=== PATIENT | female | born 1965 | race American Indian/Alaskan Native ===

== ENCOUNTER 2018-05-01 17:20 | Emergency (ER) | payer SELFPAY ==
--- NOTE | 2018-05-01 21:25 | XRay Report ---
FINAL REPORT PROCEDURE: XR FEMUR 2+V LT TECHNIQUE: LEFT femur radiographs, AP and lateral views. HISTORY: fall COMPARISON: No prior studies are available for comparison. FINDINGS: Fracture (s) and/or Dislocation(s): None . Joint space(s): Normal . Soft tissues: Normal . Bone mineralization: Normal . Foreign bodies: None . IMPRESSION: Normal Examination
--- NOTE | 2018-05-01 21:26 | XRay Report ---
FINAL REPORT PROCEDURE: XR PELVIS 1-2V TECHNIQUE: Pelvis radiograph, AP view. CPT 74895 HISTORY: RT HIP PAIN S/P FALL COMPARISON: No prior studies are available for comparison. FINDINGS: Fracture(s): None . Alignment: There appears to be mild degree subluxation of the pubic symphysis. Joint spaces: Normal . Soft tissues: Normal . Foreign bodies: None . Bone mineralization: Normal . IMPRESSION: Possible mild degree subluxation of pubic symphysis
[2018-05-01] MEDS ORDERED: PERCOCET 5/325 PO ONE (21:57)
--- NOTE | 2018-05-01 22:02 | Emergency Department Report ---
ED Fall HPI - General Chief Complaint: Extremity Injury, Lower Stated Complaint: LEFT HIP PAIN Time Seen by Provider: 05/01/18 21:48 Source: patient Mode of arrival: Wheelchair - History of Present Illness Initial Comments: 52-year-old -[place] female with no past medical history comes in reporting that she slipped in water at [facility] and landed on her left side. Patient complains of left hip pain right shoulder pain back of the head pain. Patient reports that she cannot walk secondary to excruciating pain. She reports her pain is a 10 out of 10 that is constant. She reports that is hard to get comfortable sitting in the seat. Complaint: fall -: This evening Fall From: standing When Fall Occurred: 1 hour [employer] Fall Witnessed: yes, by family Place Fall Occurred: other Loss of Consciousness: none Prolonged Down Time?: no ([facility]) Symptoms Prior to Fall: none Location: head, pelvis, other (right shoulder) Location - Extremities: Left: Ankle, Right: Shoulder Severity: severe Severity scale (0 -10): 10 Quality: tingling Context: tripped/slipped Associated Symptoms: denies - Related Data Previous Rx's Medication Instructions Recorded Last Taken Type Ibuprofen [Motrin 600 MG tab] 600 mg PO Q8H PRN #30 tablet 05/02/18 Unknown Rx Allergies Allergy/AdvReac Type Severity Reaction Status Date / Time No Known Allergies Allergy Verified 05/01/18 17:29 ED Review of Systems ROS: Stated complaint: LEFT HIP PAIN Other details as noted in HPI Comment: All other systems reviewed and negative Musculoskeletal: arthralgia (pelvic pain, left hip, right shoulder and left ankle) Neurological: headache ED Past Medical Hx - Past Medical History Previous Medical History?: No - Surgical History Past Surgical History?: No - Social History Smoking Status: Never Smoker Substance Use Type: None - Medications Home Medications: Home Medications Medication Instructions Recorded Confirmed Last Taken Type Ibuprofen [Motrin 600 MG tab] 600 mg PO Q8H PRN #30 tablet 05/02/18 Unknown Rx ED Physical Exam - General Limitations: No Limitations General appearance: alert, in no apparent distress - Head Head exam: Present: atraumatic, normocephalic - Eye Eye exam: Present: PERRL, EOMI - ENT ENT exam: Present: mucous membranes moist - Neck Neck exam: Present: normal inspection, full ROM. Absent: tenderness - Respiratory Respiratory exam: Present: normal lung sounds bilaterally. Absent: respiratory distress - Cardiovascular Cardiovascular Exam: Present: regular rate, normal rhythm. Absent: systolic murmur, diastolic murmur, rubs, gallop - GI/Abdominal GI/Abdominal exam: Present: soft, normal bowel sounds - Expanded Lower Extremity Exam Left Hip exam: Present: tenderness (trochanter bursa area). Absent: swelling, abrasion, deformity, dislocation, erythema, shortening Knee exam: Present: normal inspection, full ROM. Absent: tenderness, swelling Lower Leg exam: Present: normal inspection, full ROM. Absent: tenderness - Expanded Neurological Exam Expanded Patient oriented to: Present: person, place, time Speech: Present: fluid speech Cranial nerves: EOM's Intact: Normal, Gag Reflex: Normal, Tongue Deviation: Normal, Nystagmus: Normal, Facial Sensation: Normal, Facial Palsy with Forehead Movement: Normal, Facial Palsy without Forehead Movement: Normal Cerebellar function: Finger to Nose: Normal - Skin Skin exam: Present: warm, dry, intact, normal color. Absent: rash ED Course Vital Signs 05/01/18 05/02/18 17:29 01:39 Temperature 97.7 F Pulse Rate 65 62 Respiratory 16 18 Rate Blood Pressure 147/67 Blood Pressure 140/64 [Right] O2 Sat by Pulse 96 100 Oximetry ED Medical Decision Making - Radiology Data Radiology results: report reviewed, image reviewed Ordering Physician: MARIA INES VAZQUEZ MD Date of Service: 05/01/18 Procedure(s): XR femur 2+V LT Accession Number(s): [id number] cc: MARIA INES VAZQUEZ MD Fluoro Time In Minutes: FINAL REPORT PROCEDURE: XR FEMUR 2+V LT TECHNIQUE: LEFT femur radiographs, AP and lateral views. HISTORY: fall COMPARISON: No prior studies are available for comparison. FINDINGS: Fracture (s) and/or Dislocation(s): None . Joint space(s): Normal . Soft tissues: Normal . Bone mineralization: Normal . Foreign bodies: None . IMPRESSION: Normal Examination Transcribed By: [facility] Dictated By: ALEXA SMITH Electronically Authenticated By: ALEXA SMITH Signed Date/Time: 05/01/182123 DD/ 23 TD/TT: 05/01/182123 FINAL REPORT PROCEDURE: XR PELVIS 1-2V TECHNIQUE: Pelvis radiograph, AP view. CPT 89539 HISTORY: RT HIP PAIN S/P FALL COMPARISON: No prior studies are available for comparison. FINDINGS: Fracture(s): None . Alignment: There appears to be mild degree subluxation of the pubic symphysis. Joint spaces: Normal . Soft tissues: Normal . Foreign bodies: None . Bone mineralization: Normal . IMPRESSION: Possible mild degree subluxation of pubic symphysis Transcribed By: ALIZA Dictated By: ALEXA SMITH Electronically Authenticated By: ALEXA SMITH Signed Date/Time: 05/01/182124 DD/ 24 TD/TT: 05/01/182124 FINAL REPORT PROCEDURE: CT PELVIS WO CON TECHNIQUE: Computerized axial tomography of the pelvis was performed without contrast material. HISTORY: slip and fall plain x-ray says mild subluxation of COMPARISON: No prior studies are available for comparison. TECHNICAL QUALITY: Satisfactory. FINDINGS: An acute fracture is not identified. Bilateral hip joints and sacroiliac joints demonstrate normal alignment. Pubic symphysis is unremarkable without any evidence of dislocation. Mild degree left facet arthropathy is noted at L4-5. Pelvic viscera are unremarkable. IMPRESSION: Impression No acute fracture or dislocation. Negative study. Transcribed By: ALIZA Dictated By: ALEXA SMITH Electronically Authenticated By: ALEXA SMITH Signed Date/Time: 05/01/182305 DD/ 05 TD/TT: 05/01/182305 FINAL REPORT EXAM: CT HEAD/BRAIN WO CON HISTORY: patient reports dizziness TECHNIQUE: Routine axial imaging was obtained of the brain without IV contrast. FINDINGS: The ventricular system is appropriate in size and is symmetric. There is no evidence of acute stroke or hemorrhage. There are no extra-axial fluid collections. The visualized sinuses are clear. The mastoid air cells are well pneumatized. IMPRESSION: No acute intracranial process. Transcribed By: Dictated By: DUDLEY GUAJARDO MD Electronically Authenticated By: DUDLEY GUAJARDO MD Signed Date/Time: DD/ TD/TT: - Medical Decision Making Patient has been evaluated by this provider fast track. Patient had plain film of pelvic which showed subluxation of the pubic symphysis CT of the pelvics came back within normal limits. CT of the brain shows normal examination. Patient was given Percocet and ibuprofen for pain management. Patient be discharged to follow up with her primary care provider or orthopedics if her pain persist or gets worse. Critical care attestation.: If time is entered above; I have spent that time in minutes in the direct care of this critically ill patient, excluding procedure time. ED Disposition Clinical Impression: Pelvic pain in female, Left hip pain, Dizziness, nonspecific Fall Qualifiers: Encounter type: initial encounter Qualified Code(s): W19.XXXA - Unspecified fall, initial encounter Injury of left hip Qualifiers: Encounter type: initial encounter Qualified Code(s): S79.912A - Unspecified injury of left hip, initial encounter Trapezius muscle strain Qualifiers: Encounter type: initial encounter Laterality: right Qualified Code(s): S46.811A - Strain of other muscles, fascia and tendons at shoulder and upper arm level, right arm, initial encounter Disposition: - TO HOME OR SELFCARE Is pt being admited?: No Does the pt Need Aspirin: No Condition: Stable Additional Instructions: Please take pain medication as needed for pain. Please follow up with her primary care provider and/or orthopedist if your symptoms persist or gets worse. I have listed their information below for your convenience. Prescriptions: Ibuprofen [Motrin 600 MG tab] 600 mg PO Q8H PRN #30 tablet PRN Reason: Pain Referrals: PRIMARY MD YOVANNY [Primary Care Provider] - 3-5 Days [facility] [Provider Group] - 3-5 Days ANASTACIO CHAVEZ [Patient Local Area Network Administrator] - 3-5 Days DUDLEY PEDROZA MD [Staff Physician] - 3-5 Days Forms: Accompanied Note, Work/School Release Form(ED)
--- NOTE | 2018-05-01 23:06 | Cat Scan Report ---
FINAL REPORT PROCEDURE: CT PELVIS WO CON TECHNIQUE: Computerized axial tomography of the pelvis was performed without contrast material. HISTORY: slip and fall plain x-ray says mild subluxation of COMPARISON: No prior studies are available for comparison. TECHNICAL QUALITY: Satisfactory. FINDINGS: An acute fracture is not identified. Bilateral hip joints and sacroiliac joints demonstrate normal alignment. Pubic symphysis is unremarkable without any evidence of dislocation. Mild degree left facet arthropathy is noted at L4-5. Pelvic viscera are unremarkable. IMPRESSION: Impression No acute fracture or dislocation. Negative study.
[2018-05-01] MEDS ORDERED: MOTRIN PO ONE (23:33)
--- NOTE | 2018-05-02 01:00 | Cat Scan Report ---
FINAL REPORT EXAM: CT HEAD/BRAIN WO CON HISTORY: patient reports dizziness TECHNIQUE: Routine axial imaging was obtained of the brain without IV contrast. FINDINGS: The ventricular system is appropriate in size and is symmetric. There is no evidence of acute stroke or hemorrhage. There are no extra-axial fluid collections. The visualized sinuses are clear. The mastoid air cells are well pneumatized. IMPRESSION: No acute intracranial process.
[2018-05-02 01:40] VITALS: BP 140/64
== END 2018-05-02 01:40 | disposition home or self-care (01) ==
LOC: ED 17:20
DX: S79.912A Unspecified injury of left hip, initial encounter (principal); S46.811A Strain of other muscles, fascia and tendons at shoulder and upper arm level, right arm, initial encounter; R10.2 Pelvic and perineal pain; R42 Dizziness and giddiness; W01.0XXA Fall on same level from slipping, tripping and stumbling without subsequent striking against object, initial encounter; Y93.89 Activity, other specified; Y99.8 Other external cause status; Y92.89 Other specified places as the place of occurrence of the external cause
CPT/HCPCS: 70450; 72170; 72192